=== PATIENT | male | born 2005 | race Caucasian/White ===

== ENCOUNTER 2025-04-27 07:23 | Outpatient (CLI) | payer OTHER, SELFPAY ==
--- NOTE | ~2025-04-27 | NM_ITS ---
EXAM: NM gastric emptying study DATE: 04/27/2025 12:08 TECHNICAL SOURCING RECRUITER INDICATION: Chronic nausea with vomiting TECHNIQUE: A gastric emptying study was performed using the methodology of Lorri MARTINEZ, et al. J Nucl Med 2007; 48:568-572. The patient was given a meal consisting of 2 scrambled eggs labeled with 1 mCi Tc-99m sulfur colloid, 2 slices of toast, two packages of jam, and approximately 120 mL of water. Si multaneous anterior and posterior 1-min images of the abdomen were obtained with the patient supine at multiple time points over a total period of 4 hours. The geometric mean of anterior and posterior views was determined, and the percentage retention was calculated for each time point. COMPARISON: None. FINDINGS: Gastric retention of the radiotracer-labeled meal was 52%, 29%, and 24% at the 1-hour, 2-hour, and 4-hour time points, respectively. With this technique, apparent rapid gastric emptying is suggested by <30% gastric retention at 1 hour. Delayed gastric emptying is defined by gastric retention of >90% at 1 hour, >60% retention at 2 hours, or >10% retention at 4 hours. IMPRESSION: 1. Delayed gastric emptying. Reviewed, dictated and finalized at location O. NICAL SOURCING RECRUITER
== END 2025-04-27 07:24 | disposition home or self-care (01) ==
PROVIDERS: Visit Provider Nurse Practitioner
DX: K21.00 Gastro-esophageal reflux disease with esophagitis, without bleeding (principal); K30 Functional dyspepsia
CPT/HCPCS: 78264; A9541